=== PATIENT | female | born 1970 | race American Indian/Alaskan Native ===

== ENCOUNTER → 2017-02-22 | Outpatient (CLI) | payer MEDICARE, MEDICAID ==
[~2017-02-22] MED LIST: ASPI-496 PO; DOXY100T PO; GABA300C10 PO; MAGN400O7 PO; OXYC10TA6 PO; OXYC5SOL8 PO; TRAM50TA2 PO; TRAZ100T15 PO
[2017-02-22 11:33] LABS: HEMATOCRIT 33.1 % (34.6-47.8); HEMOGLOBIN 10.9 g/dL (11.7-16.4); WHITE BLOOD COUNT 4.8 x10^3/uL (3.4-10)
[2017-02-22 11:41] LABS: BLOOD UREA NITROGEN 5 mg/dL (7-18)
== END | disposition home or self-care (01) ==
LOC: STAR 10:13
PROVIDERS: ATTEND Orthopaedic Surgery
DX: M17.11 Unilateral primary osteoarthritis, right knee (principal); S83.512D Sprain of anterior cruciate ligament of left knee, subsequent encounter; T84.84XD Pain due to internal orthopedic prosthetic devices, implants and grafts, subsequent encounter; I10 Essential (primary) hypertension; Z96.651 Presence of right artificial knee joint; Z88.6 Allergy status to analgesic agent; Z79.1 Long term (current) use of non-steroidal anti-inflammatories (NSAID); Z90.49 Acquired absence of other specified parts of digestive tract; Z90.711 Acquired absence of uterus with remaining cervical stump; Z87.01 Personal history of pneumonia (recurrent); Z82.49 Family history of ischemic heart disease and other diseases of the circulatory system; X58.XXXD Exposure to other specified factors, subsequent encounter
CPT/HCPCS: 36415; 80048; 81001; 85025; 87077; 87081; 87086; 87147; 87186

== ENCOUNTER 2017-06-01 19:28 | Inpatient (IN) | payer MEDICARE, MEDICAID ==
[~2017-06-01] VITALS: Ht 172.7 cm; Wt 66.0 kg
[~2017-06-01 19:28] MED LIST changes: +DIAZ5TAB PO; +OXYC5CAP2 PO
[2017-06-01] MEDS ORDERED: HYDROmorphone 2 MG/ML, 1ML ONE ×4 (19:31→22:47)
[2017-06-01] MEDS ORDERED: ONDANSETRON 2MG/ML, 2ML ONE ×2 (19:31→21:31)
[2017-06-01] MEDS ORDERED: PLEASE ENTER HEIGHT AND WEIGHT MC SCH (20:00)
[2017-06-01] MEDS ORDERED: HYDROmorphone 1 MG/ML, 1ML IVPush PRN (20:00)
[2017-06-01] MEDS ORDERED: ONDANSETRON 2MG/ML, 2ML IVPush ONE (20:00)
[2017-06-01] MEDS ORDERED: SODIUM CHLORIDE 0.9% 1,000ML IVBOLUS ONE (20:00)
[2017-06-01] MEDS ORDERED: SODIUM CHLORIDE FLUSH 10ML SYR IVF ONE (20:00)
[2017-06-01 20:02] LABS: BASOPHILS # (AUTO) 0.02 x10^3/uL (0-0.1); BASOPHILS % (AUTO) 0 % (0-1); EOSINOPHILS % (AUTO) 0 % (1-7); LYMPHOCYTES # (AUTO) 0.99 x10^3/uL (1-3.4); LYMPHOCYTES % (AUTO) 6 % (22-44); MD NO; MEAN CORPUSCULAR HEMOGLOBIN 23.8 pg (27.0-34.8); MEAN CORPUSCULAR HGB CONC 32.7 g/dL (32.4-35.8); MEAN PLATELET VOLUME 7.1 fL (7.4-10.4); MONOCYTES # (AUTO) 0.91 x10^3/uL (0.2-0.8); MONOCYTES % (AUTO) 5 % (2-9); NEUTROPHILS # (AUTO) 15.17 x10^3/uL (1.8-6.8); NEUTROPHILS % (AUTO) 89 % (42-75); PLATELET COUNT 305 x10^3/uL (130-400); RED BLOOD COUNT 3.39 x10^6/uL (3.82-5.3); RED CELL DISTRIBUTION WIDTH 17.7 % (9.6-15.2)
[2017-06-01 20:07] LABS: ALANINE AMINOTRANSFERASE 10 U/L (12-78); ALBUMIN 2.1 g/dL (3.4-5.0); ANION GAP 9 mmol/L (5-15); CALCIUM 8.1 mg/dL (8.5-10.1); CHLORIDE 104 mmol/L (98-107); CREATININE 0.46 mg/dL (0.55-1.02)
[2017-06-01 20:09] LABS: ALKALINE PHOSPHATASE 118 U/L (45-117); BILIRUBIN,TOTAL 0.4 mg/dL (0.2-1.0); TOTAL PROTEIN 6.4 g/dL (6.4-8.2)
[2017-06-01] MEDS ORDERED: VANCOMYCIN PER PHARMACY MC PRN (20:30)
[2017-06-01] MEDS ORDERED: NS + 40MEQ KCL 1,000 ML IV ONE (20:30)
[2017-06-01] MEDS ORDERED: FENTANYL PF 250 MCG/5ML ONE (21:27)
[2017-06-01] MEDS ORDERED: MIDAZOLAM 1 MG/ML, 2ML ONE (21:27)
[2017-06-01] MEDS ORDERED: KETAMINE 10 MG/ML, 20ML ONE (21:27)
[2017-06-01] MEDS ORDERED: OXYcodone 5 MG/5 ML ORAL.SOL UDC PO PRN (21:30)
[2017-06-01] MEDS ORDERED: ACETAMINOPHEN 325 MG TABLET PO PRN (21:30)
[2017-06-01] MEDS ORDERED: HYDROcodone/APAP 7.5-325MG/15ML UDC PO PRN (21:30)
[2017-06-01] MEDS ORDERED: PROMETHAZINE 25 MG/ML, 1ML IV PRN (21:30)
[2017-06-01] MEDS ORDERED: ONDANSETRON 2MG/ML, 2ML IVPush PRN (21:30)
[2017-06-01] MEDS ORDERED: PROPOFOL 10 MG/ML, 20ML ONE (21:31)
[2017-06-01] MEDS ORDERED: SUCCINYLCHOLINE 20 MG/ML, 10ML ONE (21:31)
[2017-06-01] MEDS ORDERED: ROCURONIUM 10 MG/ML,10ML ONE (21:31)
[2017-06-01] MEDS ORDERED: DEXAMETHASONE 4 MG/ML, 1ML ONE (21:31)
[2017-06-01] MEDS ORDERED: LIDOCAINE 4%, 4 ML SYR/CANN TP ONE (21:31)
[2017-06-01] MEDS ORDERED: HYDROmorphone 1 MG/ML, 1ML ONE (22:04)
[2017-06-01] MEDS: FENTANYL PF 100 MCG/2ML IV PRN ×2 (22:25→22:34)
[2017-06-01] MEDS ORDERED: FENTANYL PF 100 MCG/2ML ONE (22:26)
[2017-06-01] MEDS ORDERED: ACETAMINOPHEN 650 MG/20.3 ML UDC ONE (22:26)
[2017-06-01] MEDS ORDERED: OXYcodone 5 MG/5 ML ORAL.SOL UDC ONE (22:26)
[2017-06-01] MEDS: HYDROmorphone 1 MG/ML, 1ML IV PRN ×3 (22:48→23:13)
[2017-06-01] MEDS ORDERED: PHARMACOKINETIC CONSULTATION MC ONE (23:45)
[2017-06-01] MEDS ORDERED: PHARMACOKINETIC MONITORING MC PRN (23:45)
[2017-06-02] MEDS ORDERED: ONDANSETRON 4 MG TABLET PO PRN (00:30)
[2017-06-02] MEDS: FAMOTIDINE 20 MG/2 ML IVPush SCH ×3 (00:48→20:51)
[2017-06-02] MEDS: PIPERACILLIN/TAZO/PMX 4.5GM 100 ML IV SCH ×3 (00:48→12:27)
[2017-06-02] MEDS: VANCOMYCIN 1,400 MG in SODIUM CHLORIDE 0.9% 250 ML IV SCH ×2 (01:45→15:00)
[2017-06-02] MEDS: OXYcodone IR 5MG TABLET PO PRN ×5 (02:47→23:03)
[2017-06-02 03:39] VITALS: BP 111/70
[2017-06-02] MEDS: HYDROmorphone 2MG TABLET PO PRN ×4 (04:09→20:54)
[2017-06-02 05:21] LABS: BASOPHILS # (AUTO) 0.01 x10^3/uL (0-0.1); BASOPHILS % (AUTO) 0 % (0-1); EOSINOPHILS % (AUTO) 0 % (1-7); LYMPHOCYTES # (AUTO) 0.51 x10^3/uL (1-3.4); LYMPHOCYTES % (AUTO) 3 % (22-44); MD NO; MEAN CORPUSCULAR HEMOGLOBIN 24.1 pg (27.0-34.8); MEAN CORPUSCULAR HGB CONC 32.7 g/dL (32.4-35.8); MEAN CORPUSCULAR VOLUME 73.8 fL (80-100); MEAN PLATELET VOLUME 7.6 fL (7.4-10.4); MONOCYTES # (AUTO) 0.35 x10^3/uL (0.2-0.8); MONOCYTES % (AUTO) 2 % (2-9); NEUTROPHILS # (AUTO) 14.44 x10^3/uL (1.8-6.8); NEUTROPHILS % (AUTO) 94 % (42-75); PLATELET COUNT 289 x10^3/uL (130-400); RED CELL DISTRIBUTION WIDTH 17.8 % (9.6-15.2)
[2017-06-02 05:27] LABS: ANION GAP 9 mmol/L (5-15); CALCIUM 7.9 mg/dL (8.5-10.1); CHLORIDE 107 mmol/L (98-107)
[2017-06-02 05:32] LABS: CREATININE 0.59 mg/dL (0.55-1.02)
[2017-06-02 08:55] VITALS: BP 115/71
[2017-06-02 14:18] VITALS: BP 124/72
[2017-06-02] MEDS: PIPERACILLIN/TAZO 4.5 GM in SODIUM CHLORIDE 0.9% 100 ML IV SCH (18:06)
[2017-06-02 20:00] VITALS: BP 118/74
[2017-06-03] MEDS: PIPERACILLIN/TAZO 4.5 GM in SODIUM CHLORIDE 0.9% 100 ML IV SCH ×2 (00:39→06:30)
[2017-06-03] MEDS: HYDROmorphone 2MG TABLET PO PRN (00:58)
[2017-06-03 02:12] VITALS: BP 147/86
[2017-06-03] MEDS ORDERED: LORazepam 2 MG/ML, 1ML IVPush ONE (03:00)
[2017-06-03] MEDS: VANCOMYCIN 1,400 MG in SODIUM CHLORIDE 0.9% 250 ML IV SCH (03:20)
[2017-06-03 07:27] VITALS: BP 119/76
[2017-06-03] MEDS: OXYcodone IR 5MG TABLET PO PRN ×3 (09:24→22:20)
[2017-06-03] MEDS: FAMOTIDINE 20 MG/2 ML IVPush SCH ×2 (09:24→22:20)
[2017-06-03] MEDS: CEFAZOLIN PMX 2GM/50ML 50 ML IVPB SCH ×2 (12:47→22:20)
[2017-06-03] MEDS: LIDODERM 5% PATCH TD SCH (12:48)
[2017-06-03] MEDS: IBUPROFEN 800 MG TABLET PO SCH ×2 (12:48→17:13)
[2017-06-03] MEDS: ENOXAPARIN 40 MG/0.4 ML SQ SCH (12:48)
[2017-06-03] MEDS ORDERED: DOCUSATE 100 MG CAPSULE PO PRN (13:30)
[2017-06-03 14:15] VITALS: BP 130/74
[2017-06-03] MEDS: MAGNESIUM CITRATE 300ML ORAL SOL PO PRN (15:08)
[2017-06-03 21:29] VITALS: BP 128/77
[2017-06-04] MEDS: HYDROmorphone 2MG TABLET PO PRN ×2 (01:37→06:29)
[2017-06-04] MEDS: OXYcodone IR 5MG TABLET PO PRN ×4 (04:27→21:50)
[2017-06-04 04:29] VITALS: BP 167/76
[2017-06-04] MEDS: CEFAZOLIN PMX 2GM/50ML 50 ML IVPB SCH ×3 (06:24→23:54)
[2017-06-04 07:51] VITALS: BP 135/81
[2017-06-04] MEDS: FAMOTIDINE 20 MG/2 ML IVPush SCH (07:59)
[2017-06-04] MEDS: IBUPROFEN 800 MG TABLET PO SCH ×3 (07:59→17:20)
[2017-06-04] MEDS: DOCUSATE 100 MG CAPSULE PO PRN (08:07)
[2017-06-04] MEDS ORDERED: TRANEXAMIC ACID 100 MG/ML, 10ML IV SCH (12:00)
[2017-06-04] MEDS ORDERED: TRANEXAMIC ACID 1,000 MG in SODIUM CHLORIDE 0.9% 100 ML IV ONE (12:00)
[2017-06-04] MEDS: ENOXAPARIN 40 MG/0.4 ML SQ SCH (12:26)
[2017-06-04] MEDS: LIDODERM 5% PATCH TD SCH (12:29)
[2017-06-04 14:35] VITALS: BP 130/80
[2017-06-04] MEDS: MAGNESIUM CITRATE 300ML ORAL SOL PO PRN (15:19)
[2017-06-04 19:40] VITALS: BP 126/79
[2017-06-04] MEDS: FAMOTIDINE 20 MG TABLET PO SCH (21:58)
[2017-06-05] MEDS: HYDROmorphone 2MG TABLET PO PRN ×2 (00:59→05:54)
[2017-06-05 01:58] VITALS: BP 156/99
[2017-06-05] MEDS: OXYcodone IR 5MG TABLET PO PRN ×3 (02:16→22:16)
[2017-06-05 05:58] LABS: BASOPHILS # (AUTO) 0.03 x10^3/uL (0-0.1); BASOPHILS % (AUTO) 0 % (0-1); EOSINOPHILS # (AUTO) 0.02 x10^3/uL (0-0.4); EOSINOPHILS % (AUTO) 0 % (1-7); LYMPHOCYTES # (AUTO) 1.76 x10^3/uL (1-3.4); LYMPHOCYTES % (AUTO) 17 % (22-44); MD NO; MEAN CORPUSCULAR HEMOGLOBIN 24.5 pg (27.0-34.8); MEAN CORPUSCULAR HGB CONC 33.3 g/dL (32.4-35.8); MEAN CORPUSCULAR VOLUME 73.7 fL (80-100); MEAN PLATELET VOLUME 6.6 fL (7.4-10.4); MONOCYTES # (AUTO) 0.64 x10^3/uL (0.2-0.8); MONOCYTES % (AUTO) 6 % (2-9); NEUTROPHILS # (AUTO) 8.01 x10^3/uL (1.8-6.8); NEUTROPHILS % (AUTO) 77 % (42-75); PLATELET COUNT 587 x10^3/uL (130-400); RED BLOOD COUNT 3.43 x10^6/uL (3.82-5.3); RED CELL DISTRIBUTION WIDTH 18.2 % (9.6-15.2)
[2017-06-05 07:14] LABS: HCG UR SG 1.013 (1.003-1.030)
[2017-06-05 07:35] VITALS: BP 145/88
[2017-06-05] MEDS: CEFAZOLIN PMX 2GM/50ML 50 ML IVPB SCH ×2 (07:37→18:03)
[2017-06-05] MEDS ORDERED: MIDAZOLAM 1 MG/ML, 2ML ONE (08:01)
[2017-06-05] MEDS ORDERED: FENTANYL PF 250 MCG/5ML ONE (08:01)
[2017-06-05] MEDS ORDERED: PROPOFOL 10 MG/ML, 20ML ONE (08:02)
[2017-06-05] MEDS ORDERED: LIDOCAINE-MPF 2% ,5ML ONE (08:02)
[2017-06-05] MEDS ORDERED: PHENYLEPHRINE 10 MG/ML ONE (08:03)
[2017-06-05] MEDS ORDERED: SODIUM CHLORIDE 0.9% PF 10ML ONE (08:04)
[2017-06-05] MEDS ORDERED: CEFAZOLIN 1,000 MG ONE ×2 (08:04)
[2017-06-05] MEDS ORDERED: BUPIVACAINE/PF 0.25% ONE (08:09)
[2017-06-05] MEDS: IBUPROFEN 800 MG TABLET PO SCH ×3 (08:41→17:24)
[2017-06-05] MEDS: FAMOTIDINE 20 MG TABLET PO SCH ×2 (08:41→22:16)
[2017-06-05] MEDS ORDERED: SODIUM CHLORIDE 0.9% 100 ML ONE (09:00)
[2017-06-05] MEDS ORDERED: TRANEXAMIC ACID 100 MG/ML, 10ML ONE (09:00)
[2017-06-05] MEDS ORDERED: KETOROLAC 60 MG/2 ML ONE (09:00)
[2017-06-05] MEDS ORDERED: ROPIvacaine/PF 0.2%, 20 ML ONE (09:00)
[2017-06-05] MEDS ORDERED: EPINEPHRINE 1 MG/ML, 1ML ONE (09:00)
[2017-06-05] MEDS ORDERED: DEXAMETHASONE 4 MG/ML, 1ML ONE ×2 (09:27)
[2017-06-05] MEDS ORDERED: KETAMINE 10 MG/ML, 20ML ONE (09:27)
[2017-06-05] MEDS ORDERED: HYDROmorphone 2 MG/ML, 1ML ONE ×2 (09:30→09:41)
[2017-06-05] MEDS ORDERED: LABETALOL 5MG/ML, 20ML IV PRN (10:00)
[2017-06-05] MEDS ORDERED: MEPERIDINE/PF 25MG/0.5ML IVPush PRN (10:00)
[2017-06-05] MEDS ORDERED: HYDROmorphone 1 MG/ML, 1ML IV PRN (10:00)
[2017-06-05] MEDS ORDERED: ONDANSETRON 2MG/ML, 2ML IVPush PRN (10:00)
[2017-06-05] MEDS ORDERED: hydrALAzine 20 MG/ML, 1ML IV PRN (10:00)
[2017-06-05] MEDS ORDERED: DIAZEPAM 5 MG/ML, 2ML IVPush PRN (10:00)
[2017-06-05] MEDS ORDERED: FENTANYL PF 100 MCG/2ML IV PRN (10:00)
[2017-06-05] MEDS ORDERED: OXYcodone 5 MG/5 ML ORAL.SOL UDC PO PRN (10:00)
[2017-06-05] MEDS ORDERED: PROMETHAZINE 25 MG/ML, 1ML IV PRN (10:00)
[2017-06-05] MEDS ORDERED: ONDANSETRON 2MG/ML, 2ML ONE (10:07)
[2017-06-05] MEDS ORDERED: HALOPERIDOL 5 MG/ML ONE (10:40)
[2017-06-05] MEDS ORDERED: TRANEXAMIC ACID 1,000 MG in SODIUM CHLORIDE 0.9% 100 ML IV ONE (11:00)
[2017-06-05] MEDS ORDERED: VANCOMYCIN PMX 1GM/200ML 200 ML IV ONE (11:00)
[2017-06-05] MEDS ORDERED: OXYcodone 5 MG/5 ML ORAL.SOL UDC ONE (11:29)
[2017-06-05] MEDS: ENOXAPARIN 40 MG/0.4 ML SQ SCH (12:30)
[2017-06-05] MEDS: D5%-0.45% NACL 1,000 ML IV SCH ×2 (14:02→22:16)
[2017-06-05 14:03] VITALS: BP 137/91
[2017-06-05 18:52] VITALS: BP 128/77
[2017-06-05] MEDS: LIDODERM 5% PATCH TD SCH (23:45)
[2017-06-06] MEDS: CEFAZOLIN PMX 2GM/50ML 50 ML IVPB SCH (01:04)
[2017-06-06] MEDS: D5%-0.45% NACL 1,000 ML IV SCH ×2 (01:04→16:27)
[2017-06-06] MEDS: OXYcodone IR 5MG TABLET PO PRN ×5 (02:14→23:20)
[2017-06-06 04:47] LABS: HCT (SEDRATE) 25.8 % (34.6-47.8); MEAN CORPUSCULAR HEMOGLOBIN 24.1 pg (27.0-34.8); MEAN CORPUSCULAR HGB CONC 32.1 g/dL (32.4-35.8); MEAN CORPUSCULAR VOLUME 74.9 fL (80-100); MEAN PLATELET VOLUME 6.7 fL (7.4-10.4); PLATELET COUNT 636 x10^3/uL (130-400); RED BLOOD COUNT 3.44 x10^6/uL (3.82-5.3); RED CELL DISTRIBUTION WIDTH 17.4 % (9.6-15.2)
[2017-06-06 05:24] LABS: BASOPHILS # (AUTO) 0.09 x10^3/uL (0-0.1); BASOPHILS % (AUTO) 1 % (0-1); EOSINOPHILS # (AUTO) 0.04 x10^3/uL (0-0.4); EOSINOPHILS % (AUTO) 0 % (1-7); LYMPHOCYTES # (AUTO) 2.08 x10^3/uL (1-3.4); LYMPHOCYTES % (AUTO) 18 % (22-44); MD SCAN; MONOCYTES # (AUTO) 0.69 x10^3/uL (0.2-0.8); MONOCYTES % (AUTO) 6 % (2-9); NEUTROPHILS # (AUTO) 8.78 x10^3/uL (1.8-6.8); NEUTROPHILS % (AUTO) 75 % (42-75)
[2017-06-06 05:49] LABS: SEDIMENTATION RATE 98 mm/hr (0-20)
[2017-06-06] MEDS ORDERED: ENOXAPARIN 40 MG/0.4 ML SQ SCH ×2 (06:00→14:51)
[2017-06-06] MEDS: IBUPROFEN 800 MG TABLET PO SCH (08:30)
[2017-06-06] MEDS: FAMOTIDINE 20 MG TABLET PO SCH ×2 (08:30→19:32)
[2017-06-06] MEDS ORDERED: MIDAZOLAM 1 MG/ML, 2ML ONE (10:16)
[2017-06-06] MEDS ORDERED: FENTANYL PF 250 MCG/5ML ONE (10:16)
[2017-06-06] MEDS ORDERED: BUPIVACAINE/PF 0.5% ONE (10:33)
[2017-06-06] MEDS ORDERED: BACITRACIN 50,000 UNIT ONE (10:33)
[2017-06-06] MEDS ORDERED: THROMBIN 20,000 UNIT VIAL TP ONE ×2 (10:33→13:35)
[2017-06-06] MEDS ORDERED: EPINEPHRINE 1 MG/ML, 1ML ONE (10:33)
[2017-06-06] MEDS ORDERED: PROPOFOL 10 MG/ML, 20ML ONE (11:29)
[2017-06-06] MEDS ORDERED: ONDANSETRON 2MG/ML, 2ML ONE (11:29)
[2017-06-06] MEDS ORDERED: DEXAMETHASONE 4 MG/ML, 1ML ONE (11:29)
[2017-06-06] MEDS ORDERED: ROCURONIUM 10 MG/ML,10ML ONE (11:29)
[2017-06-06] MEDS ORDERED: SUCCINYLCHOLINE 20 MG/ML, 10ML ONE (11:29)
[2017-06-06] MEDS ORDERED: CEFAZOLIN 1,000 MG ONE (11:29)
[2017-06-06] MEDS ORDERED: HYDROmorphone 2 MG/ML, 1ML ONE (11:31)
[2017-06-06] MEDS ORDERED: KETAMINE 10 MG/ML, 20ML ONE (11:31)
[2017-06-06] MEDS ORDERED: METOCLOPRAMIDE 5 MG/ML, 2ML IV PRN (12:30)
[2017-06-06] MEDS ORDERED: HYDROmorphone 1 MG/ML, 1ML IV PRN (12:30)
[2017-06-06] MEDS ORDERED: LABETALOL 5MG/ML, 20ML IV PRN (12:30)
[2017-06-06] MEDS ORDERED: ACETAMINOPHEN 325 MG TABLET PO PRN (12:30)
[2017-06-06] MEDS ORDERED: OXYcodone 5 MG/5 ML ORAL.SOL UDC PO PRN (12:30)
[2017-06-06] MEDS ORDERED: hydrALAzine 20 MG/ML, 1ML IV PRN (12:30)
[2017-06-06] MEDS ORDERED: ONDANSETRON 2MG/ML, 2ML IVPush PRN (12:30)
[2017-06-06] MEDS ORDERED: FENTANYL PF 100 MCG/2ML IV PRN (12:30)
[2017-06-06] MEDS ORDERED: BUPIVACAINE/PF-EPI 0.5% 1:200K INFIL ONE (13:34)
[2017-06-06] MEDS ORDERED: BACITRACIN 50,000 UNIT IM ONE (13:35)
[2017-06-06] MEDS ORDERED: FENTANYL PF 100 MCG/2ML ONE (13:48)
[2017-06-06] MEDS ORDERED: OXYcodone 5 MG/5 ML ORAL.SOL UDC ONE (13:48)
[2017-06-06] MEDS: [UNRECOGNIZED DRUG - REMARK] MC SCH ×2 (14:59→23:00)
[2017-06-06] MEDS ORDERED: HYDROmorphone 2 MG/ML, 1ML IV PRN (15:00)
[2017-06-06] MEDS: CEFUROXIME 1.5 GM in SODIUM CHLORIDE 0.9% 50 ML IV SCH (16:27)
[2017-06-06] MEDS: LIDODERM 5% PATCH TD SCH (19:32)
[2017-06-06 21:50] VITALS: BP 151/93
[2017-06-06] MEDS: TRAZODONE 100MG TABLET PO PRN (23:20)
[2017-06-07] MEDS: CEFUROXIME 1.5 GM in SODIUM CHLORIDE 0.9% 50 ML IV SCH ×3 (01:08→17:16)
[2017-06-07 01:49] VITALS: BP 149/85
[2017-06-07] MEDS: OXYcodone IR 5MG TABLET PO PRN ×4 (02:48→21:29)
[2017-06-07 05:13] LABS: CHLORIDE 105 mmol/L (98-107); MEAN CORPUSCULAR HEMOGLOBIN 23.8 pg (27.0-34.8); MEAN CORPUSCULAR HGB CONC 32.1 g/dL (32.4-35.8); MEAN CORPUSCULAR VOLUME 74.3 fL (80-100); MEAN PLATELET VOLUME 6.4 fL (7.4-10.4); PLATELET COUNT 762 x10^3/uL (130-400); RED BLOOD COUNT 3.51 x10^6/uL (3.82-5.3); RED CELL DISTRIBUTION WIDTH 17.8 % (9.6-15.2)
[2017-06-07 05:21] LABS: ALANINE AMINOTRANSFERASE 17 U/L (12-78); ALBUMIN 2.2 g/dL (3.4-5.0); ALKALINE PHOSPHATASE 96 U/L (45-117); ANION GAP 7 mmol/L (5-15); BILIRUBIN,TOTAL 0.3 mg/dL (0.2-1.0); CALCIUM 8.6 mg/dL (8.5-10.1); CREATININE 0.37 mg/dL (0.55-1.02); TOTAL PROTEIN 7.2 g/dL (6.4-8.2)
[2017-06-07 05:37] LABS: BASOPHILS # (AUTO) 0.73 x10^3/uL (0-0.1); BASOPHILS % (AUTO) 5 % (0-1); EOSINOPHILS # (AUTO) 0.02 x10^3/uL (0-0.4); EOSINOPHILS % (AUTO) 0 % (1-7); LYMPHOCYTES # (AUTO) 1.36 x10^3/uL (1-3.4); LYMPHOCYTES % (AUTO) 10 % (22-44); MD SCAN; MONOCYTES # (AUTO) 0.59 x10^3/uL (0.2-0.8); MONOCYTES % (AUTO) 4 % (2-9); NEUTROPHILS # (AUTO) 10.94 x10^3/uL (1.8-6.8); NEUTROPHILS % (AUTO) 80 % (42-75)
[2017-06-07] MEDS: [UNRECOGNIZED DRUG - REMARK] MC SCH ×3 (07:00→22:26)
[2017-06-07 07:48] VITALS: BP 140/83
[2017-06-07] MEDS: FAMOTIDINE 20 MG TABLET PO SCH ×2 (09:54→21:29)
[2017-06-07 12:46] VITALS: BP 156/79
[2017-06-07 19:21] VITALS: BP 122/81
[2017-06-07] MEDS: TRAZODONE 100MG TABLET PO PRN (21:29)
[2017-06-07] MEDS: LIDODERM 5% PATCH TD SCH (21:30)
[2017-06-08] MEDS: D5%-0.45% NACL 1,000 ML IV SCH (00:06)
[2017-06-08] MEDS: CEFUROXIME 1.5 GM in SODIUM CHLORIDE 0.9% 50 ML IV SCH ×3 (00:06→15:33)
[2017-06-08] MEDS: OXYcodone IR 5MG TABLET PO PRN ×4 (01:48→22:20)
[2017-06-08 02:03] VITALS: BP 126/80
[2017-06-08 05:05] LABS: BASOPHILS # (AUTO) 0.01 x10^3/uL (0-0.1); BASOPHILS % (AUTO) 0 % (0-1); EOSINOPHILS # (AUTO) 0.18 x10^3/uL (0-0.4); EOSINOPHILS % (AUTO) 2 % (1-7); LYMPHOCYTES # (AUTO) 2.09 x10^3/uL (1-3.4); LYMPHOCYTES % (AUTO) 19 % (22-44); MD NO; MEAN CORPUSCULAR HEMOGLOBIN 24.2 pg (27.0-34.8); MEAN CORPUSCULAR HGB CONC 32.7 g/dL (32.4-35.8); MEAN CORPUSCULAR VOLUME 74.1 fL (80-100); MEAN PLATELET VOLUME 6.2 fL (7.4-10.4); MONOCYTES % (AUTO) 6 % (2-9); NEUTROPHILS % (AUTO) 74 % (42-75); PLATELET COUNT 831 x10^3/uL (130-400); RED BLOOD COUNT 3.54 x10^6/uL (3.82-5.3); RED CELL DISTRIBUTION WIDTH 18.1 % (9.6-15.2)
[2017-06-08 05:12] LABS: ALBUMIN 2.2 g/dL (3.4-5.0); ANION GAP 8 mmol/L (5-15); CALCIUM 8.8 mg/dL (8.5-10.1); CHLORIDE 106 mmol/L (98-107)
[2017-06-08 05:16] LABS: ALANINE AMINOTRANSFERASE 15 U/L (12-78); ALKALINE PHOSPHATASE 95 U/L (45-117); BILIRUBIN,TOTAL 0.4 mg/dL (0.2-1.0); CREATININE 0.38 mg/dL (0.55-1.02); TOTAL PROTEIN 7.4 g/dL (6.4-8.2)
[2017-06-08] MEDS: [UNRECOGNIZED DRUG - REMARK] MC SCH ×3 (05:33→23:00)
[2017-06-08 06:44] VITALS: BP 124/74
[2017-06-08] MEDS: FAMOTIDINE 20 MG TABLET PO SCH ×2 (07:53→22:18)
[2017-06-08] MEDS: ISONIAZID 300 MG TABLET PO SCH (10:48)
[2017-06-08] MEDS: PYRIDOXINE 50MG TABLET PO SCH (10:48)
[2017-06-08 14:38] VITALS: BP 109/75
[2017-06-08] MEDS ORDERED: TRAZ100T15 PO (15:23)
[2017-06-08] MEDS ORDERED: DOCU-131 PO (15:23)
[2017-06-08] MEDS ORDERED: ISON300T4 PO (15:23)
[2017-06-08] MEDS ORDERED: ENOX40SY4 SQ (15:23)
[2017-06-08] MEDS ORDERED: PYRI50TA5 PO (15:23)
[2017-06-08] MEDS ORDERED: Lidoderm 5% Patch TD (15:23)
[2017-06-08] MEDS ORDERED: cefuroxime IVPB (15:23)
[2017-06-08] MEDS ORDERED: FAMO20TA7 PO (15:23)
[2017-06-08] MEDS ORDERED: HYDR25TA11 PO (15:23)
[2017-06-08 19:32] VITALS: BP 117/77
[2017-06-08] MEDS: LIDODERM 5% PATCH TD SCH (22:19)
[2017-06-09] MEDS: CEFUROXIME 1.5 GM in SODIUM CHLORIDE 0.9% 50 ML IV SCH ×3 (01:05→15:56)
[2017-06-09 01:15] VITALS: BP 116/74
[2017-06-09 05:26] LABS: BASOPHILS # (AUTO) 0.04 x10^3/uL (0-0.1); BASOPHILS % (AUTO) 0 % (0-1); EOSINOPHILS # (AUTO) 0.09 x10^3/uL (0-0.4); EOSINOPHILS % (AUTO) 1 % (1-7); LYMPHOCYTES # (AUTO) 2.47 x10^3/uL (1-3.4); LYMPHOCYTES % (AUTO) 23 % (22-44); MD NO; MEAN CORPUSCULAR HEMOGLOBIN 23.7 pg (27.0-34.8); MEAN CORPUSCULAR HGB CONC 31.9 g/dL (32.4-35.8); MEAN CORPUSCULAR VOLUME 74.2 fL (80-100); MEAN PLATELET VOLUME 6.2 fL (7.4-10.4); MONOCYTES # (AUTO) 0.68 x10^3/uL (0.2-0.8); MONOCYTES % (AUTO) 6 % (2-9); NEUTROPHILS % (AUTO) 70 % (42-75); PLATELET COUNT 842 x10^3/uL (130-400); RED BLOOD COUNT 3.68 x10^6/uL (3.82-5.3); RED CELL DISTRIBUTION WIDTH 18.4 % (9.6-15.2)
[2017-06-09 05:31] LABS: ANION GAP 8 mmol/L (5-15); CALCIUM 9.1 mg/dL (8.5-10.1); CHLORIDE 107 mmol/L (98-107); CREATININE 0.39 mg/dL (0.55-1.02)
[2017-06-09] MEDS: [UNRECOGNIZED DRUG - REMARK] MC SCH ×3 (07:00→21:14)
[2017-06-09] MEDS: ISONIAZID 300 MG TABLET PO SCH (07:39)
[2017-06-09] MEDS: OXYcodone IR 5MG TABLET PO PRN ×3 (07:39→21:13)
[2017-06-09] MEDS: FAMOTIDINE 20 MG TABLET PO SCH ×2 (07:39→21:13)
[2017-06-09] MEDS: PYRIDOXINE 50MG TABLET PO SCH (07:39)
[2017-06-09 09:22] VITALS: BP 125/85
[2017-06-09 13:38] VITALS: BP 121/82
[2017-06-09 18:48] VITALS: BP 120/82
[2017-06-09] MEDS: LIDODERM 5% PATCH TD SCH (21:13)
[2017-06-10] MEDS: CEFUROXIME 1.5 GM in SODIUM CHLORIDE 0.9% 50 ML IV SCH ×3 (00:32→18:55)
[2017-06-10 02:12] VITALS: BP 113/73
[2017-06-10] MEDS: [UNRECOGNIZED DRUG - REMARK] MC SCH ×3 (06:27→22:52)
[2017-06-10 07:10] VITALS: BP 111/77
[2017-06-10] MEDS: FAMOTIDINE 20 MG TABLET PO SCH ×2 (07:25→21:22)
[2017-06-10] MEDS: OXYcodone IR 5MG TABLET PO PRN ×4 (07:25→23:00)
[2017-06-10] MEDS: ISONIAZID 300 MG TABLET PO SCH (07:25)
[2017-06-10] MEDS: PYRIDOXINE 50MG TABLET PO SCH (07:25)
[2017-06-10 15:03] VITALS: BP 138/92
[2017-06-10 19:34] VITALS: BP 123/85
[2017-06-10] MEDS: LIDODERM 5% PATCH TD SCH (21:25)
[2017-06-11] MEDS: OXYcodone IR 5MG TABLET PO PRN ×5 (02:59→23:34)
[2017-06-11] MEDS: CEFUROXIME 1.5 GM in SODIUM CHLORIDE 0.9% 50 ML IV SCH ×3 (02:59→18:32)
[2017-06-11 03:01] VITALS: BP 111/79
[2017-06-11 05:48] LABS: BASOPHILS # (AUTO) 0.04 x10^3/uL (0-0.1); BASOPHILS % (AUTO) 0 % (0-1); EOSINOPHILS # (AUTO) 0.09 x10^3/uL (0-0.4); EOSINOPHILS % (AUTO) 1 % (1-7); LYMPHOCYTES # (AUTO) 1.97 x10^3/uL (1-3.4); LYMPHOCYTES % (AUTO) 20 % (22-44); MD NO; MEAN CORPUSCULAR HEMOGLOBIN 23.3 pg (27.0-34.8); MEAN CORPUSCULAR HGB CONC 31.9 g/dL (32.4-35.8); MEAN CORPUSCULAR VOLUME 73.1 fL (80-100); MEAN PLATELET VOLUME 6.1 fL (7.4-10.4); MONOCYTES # (AUTO) 0.77 x10^3/uL (0.2-0.8); MONOCYTES % (AUTO) 8 % (2-9); NEUTROPHILS % (AUTO) 71 % (42-75); PLATELET COUNT 733 x10^3/uL (130-400); RED CELL DISTRIBUTION WIDTH 18.3 % (9.6-15.2)
[2017-06-11 06:09] LABS: ALANINE AMINOTRANSFERASE 38 U/L (12-78); ALBUMIN 2.5 g/dL (3.4-5.0); ANION GAP 7 mmol/L (5-15); CALCIUM 9.2 mg/dL (8.5-10.1); CHLORIDE 104 mmol/L (98-107); CREATININE 0.53 mg/dL (0.55-1.02)
[2017-06-11 06:16] LABS: ALKALINE PHOSPHATASE 101 U/L (45-117); BILIRUBIN,TOTAL 0.5 mg/dL (0.2-1.0); TOTAL PROTEIN 8.3 g/dL (6.4-8.2)
[2017-06-11 06:25] LABS: HCT (SEDRATE) 27.8 % (34.6-47.8)
[2017-06-11 06:49] VITALS: BP 105/70
[2017-06-11] MEDS: [UNRECOGNIZED DRUG - REMARK] MC SCH ×3 (07:00→23:00)
[2017-06-11] MEDS: FAMOTIDINE 20 MG TABLET PO SCH ×2 (09:02→19:32)
[2017-06-11] MEDS: PYRIDOXINE 50MG TABLET PO SCH (09:02)
[2017-06-11] MEDS: ISONIAZID 300 MG TABLET PO SCH (09:02)
[2017-06-11 13:36] VITALS: BP 114/77
[2017-06-11] MEDS: DOCUSATE 100 MG CAPSULE PO PRN (16:55)
[2017-06-11] MEDS: MAGNESIUM CITRATE 300ML ORAL SOL PO PRN (16:56)
[2017-06-11 19:01] VITALS: BP 135/81
[2017-06-11] MEDS: LIDODERM 5% PATCH TD SCH (21:10)
[2017-06-12] MEDS: CEFUROXIME 1.5 GM in SODIUM CHLORIDE 0.9% 50 ML IV SCH ×3 (03:41→18:36)
[2017-06-12] MEDS: OXYcodone IR 5MG TABLET PO PRN ×5 (03:42→23:35)
[2017-06-12 03:44] VITALS: BP 119/74
[2017-06-12] MEDS: [UNRECOGNIZED DRUG - REMARK] MC SCH ×3 (05:22→23:00)
[2017-06-12 08:09] VITALS: BP 119/70
[2017-06-12] MEDS: PYRIDOXINE 50MG TABLET PO SCH (09:04)
[2017-06-12] MEDS: FAMOTIDINE 20 MG TABLET PO SCH ×2 (09:04→19:57)
[2017-06-12] MEDS: ISONIAZID 300 MG TABLET PO SCH (09:04)
[2017-06-12] MEDS: DOCUSATE 100 MG CAPSULE PO PRN (09:04)
[2017-06-12 12:38] VITALS: BP 118/72
[2017-06-12 19:39] VITALS: BP 117/91
[2017-06-12] MEDS: TRAZODONE 100MG TABLET PO PRN (19:57)
[2017-06-12] MEDS: LIDODERM 5% PATCH TD SCH (19:57)
[2017-06-13 01:54] VITALS: BP 113/76
[2017-06-13] MEDS: OXYcodone IR 5MG TABLET PO PRN ×5 (03:41→22:48)
[2017-06-13] MEDS: CEFUROXIME 1.5 GM in SODIUM CHLORIDE 0.9% 50 ML IV SCH ×3 (03:43→18:42)
[2017-06-13] MEDS: [UNRECOGNIZED DRUG - REMARK] MC SCH ×3 (06:14→23:00)
[2017-06-13 08:03] VITALS: BP 115/73
[2017-06-13] MEDS: FAMOTIDINE 20 MG TABLET PO SCH ×2 (09:12→20:47)
[2017-06-13] MEDS: PYRIDOXINE 50MG TABLET PO SCH (09:12)
[2017-06-13] MEDS: DOCUSATE 100 MG CAPSULE PO PRN (09:16)
[2017-06-13] MEDS: ISONIAZID 300 MG TABLET PO SCH (10:46)
[2017-06-13] MEDS: MAGNESIUM CITRATE 300ML ORAL SOL PO PRN (14:00)
[2017-06-13 14:04] VITALS: BP 128/79
[2017-06-13] MEDS: TRAZODONE 100MG TABLET PO PRN (20:46)
[2017-06-13] MEDS: LIDODERM 5% PATCH TD SCH (20:46)
[2017-06-13 20:49] VITALS: BP 116/75
[2017-06-14 02:03] VITALS: BP 104/70
[2017-06-14] MEDS: CEFUROXIME 1.5 GM in SODIUM CHLORIDE 0.9% 50 ML IV SCH ×2 (02:49→11:20)
[2017-06-14] MEDS: OXYcodone IR 5MG TABLET PO PRN ×3 (02:49→11:27)
[2017-06-14] MEDS: [UNRECOGNIZED DRUG - REMARK] MC SCH ×2 (07:00→15:00)
[2017-06-14 07:14] VITALS: BP 104/68
[2017-06-14] MEDS: PYRIDOXINE 50MG TABLET PO SCH (08:46)
[2017-06-14] MEDS: FAMOTIDINE 20 MG TABLET PO SCH (08:46)
[2017-06-14] MEDS: ISONIAZID 300 MG TABLET PO SCH (08:46)
[2017-06-14 12:51] VITALS: BP 119/69
== END 2017-06-14 15:25 | DRG 466 ==
LOC: ED 20:16 → EDIP 20:30 → 4NOR 23:30 → CCU 06-05 20:52 → 4NOR 06-06 20:05
PROVIDERS: ADMIT Internal Medicine; ATTEND Family Medicine
PROC: 0SPV0JZ Removal of Synthetic Substitute from Right Knee Joint, Tibial Surface, Open Approach (ICD-10-PCS; 2017-06-01)
PROC: 0SBC0ZZ Excision of Right Knee Joint, Open Approach (ICD-10-PCS; 2017-06-01)
PROC: 0SRV0JZ Replacement of Right Knee Joint, Tibial Surface with Synthetic Substitute, Open Approach (ICD-10-PCS; 2017-06-01)
PROC: 3E1U38X Irrigation of Joints using Irrigating Substance, Percutaneous Approach, Diagnostic (ICD-10-PCS; principal; 2017-06-01 22:15)
PROC: 01N10ZZ Release Cervical Nerve, Open Approach (ICD-10-PCS; 2017-06-06)
PROC: 0RG1070 Fusion of Cervical Vertebral Joint with Autologous Tissue Substitute, Anterior Approach, Anterior Column, Open Approach (ICD-10-PCS; 2017-06-06)
PROC: 0RB30ZZ Excision of Cervical Vertebral Disc, Open Approach (ICD-10-PCS; 2017-06-06)
PROC: 4A11X4G Monitoring of Peripheral Nervous Electrical Activity, Intraoperative, External Approach (ICD-10-PCS; 2017-06-06)
DX: T84.53XA Infection and inflammatory reaction due to internal right knee prosthesis, initial encounter (principal); G06.1 Intraspinal abscess and granuloma; R65.20 Severe sepsis without septic shock; M46.22 Osteomyelitis of vertebra, cervical region; G95.29 Other cord compression; B95.61 Methicillin susceptible Staphylococcus aureus infection as the cause of diseases classified elsewhere; B19.20 Unspecified viral hepatitis C without hepatic coma; D64.9 Anemia, unspecified; F19.10 Other psychoactive substance abuse, uncomplicated; F11.10 Opioid abuse, uncomplicated; F15.90 Other stimulant use, unspecified, uncomplicated; F17.200 Nicotine dependence, unspecified, uncomplicated; G47.33 Obstructive sleep apnea (adult) (pediatric); I11.9 Hypertensive heart disease without heart failure; M25.78 Osteophyte, vertebrae; M46.40 Discitis, unspecified, site unspecified; Z86.61 Personal history of infections of the central nervous system; Z87.81 Personal history of (healed) traumatic fracture; Z90.49 Acquired absence of other specified parts of digestive tract; Z90.710 Acquired absence of both cervix and uterus; R76.11 Nonspecific reaction to tuberculin skin test without active tuberculosis
CPT/HCPCS: 36415; 71045; 72040; 72125; 72128; 72141; 72156; 80048; 80053; 81025; 83605; 83735; 85025; 85651; 86140; 86480; 86635; 86698; 86703; 86704; 86706; 86803; 86850; 86900; 86923; 87015; 87040; 87070; 87075; 87077; 87081; 87102; 87116; 87147; 87186; 87205; 87206; 87340; 87521; 87899; 93005; 93306; 96361; 96374; 96375; C1713; J0171; J0690; J0697; J1100; J1170; J1650; J1885; J2250; J2405; J2543; J2704; J2795; J3010; J3370; J3490; C1762; C1776; G0435; J0330; J2060; J2370; J7030; J7050; Q0177; S0028